=== PATIENT | female | born 1955 | race Caucasian/White ===

== ENCOUNTER → 2022-08-10 15:14 | Outpatient (BNVA) | payer MEDICARE, SELFPAY | PROVIDERS: PCP Nurse Practitioner Family; Visit Provider Nurse Practitioner Family | DX: R76.8 Other specified abnormal immunological findings in serum (principal) | CPT/HCPCS: 99202 ==

== ENCOUNTER 2023-06-20 10:15 | Outpatient (REF) | payer MEDICARE, SELFPAY ==
--- NOTE | ~2023-06-20 | XR_ITS ---
EXAMINATION: XR ABDOMEN KUB CLINICAL INDICATION: Constipation, abdominal pain. COMPARISON: None available. TECHNIQUE: 2 AP views of the abdomen. FINDINGS: Large amount of stool in the colon. Prominent air-filled loops of bowel centrally in the left upper quadrant. Degenerative changes in the imaged spine and bilateral hips. Rounded devices overlying the bilateral lower lungs may possibly be external to the patient such as nipple jewelry and correlation with clinical exam recommended for confirmation. XR/XR KUB IMPRESSION: 1. Large amount of stool in the colon. Prominent air-filled loops of bowel centrally in the left upper quadrant. Appearance is compatible with given history of constipation. 2. Rounded devices overlying the bilateral lower lungs may possibly be external to the patient such as nipple jewelry and correlation with clinical exam recommended for confirmation.
[2023-06-20 11:57] LABS: MANUAL DIFF FLAG NO
[2023-06-20 12:31] LABS: Basophils Percent Auto 0.5 % (0-2); Eosinophils Absolute Auto 0.1 X10*3/uL (0.0-0.4); Eosinophils Percent Auto 1.4 % (0-4); Hemoglobin 12.8 g/dl (12.0-16.0); Imm Gran Abs Auto 0.02 X10*3/uL (0.00-0.03); Imm Gran Pct Auto 0.3 % (0.0-0.4); Lymphocytes Absolute Auto 1.8 X10*3/uL (1.2-4.9); Mean Corpuscular HGB Conc 32.8 g/dl (31.0-35.0); Mean Corpuscular Hemoglobin 29.9 pg (27.0-33.0); Mean Corpuscular Volume 91.1 fL (80.0-98.0); Mean Platelet Volume 10.7 fL (9.4-12.3); Monocytes Absolute Auto 0.5 X10*3/uL (0.1-1.2); Monocytes Percent Auto 9.1 % (2-11); Neutrophils Absolute Auto 3.4 x10*3/uL (2.0-8.3); Neutrophils Percent Auto 57.7 % (45-73); Platelet Count 305 X10*3/uL (160-400); Red Blood Count 4.28 X10*6/uL (4.20-5.50); Red Cell Distribution Width 12.1 % (11.0-16.0); White Blood Count 5.9 X10*3/uL (4.8-10.8)
[2023-06-20 13:06] LABS: Alanine Aminotransferase 14 U/L (0-31); Albumin Level 4.5 g/dL (3.5-5.0); Alkaline Phosphatase 66 U/L (39-117); Anion Gap 12 (12-20); Aspartate Amino Transferase 15 U/L (5-31); Bilirubin Total 0.9 mg/dL (0.0-1.0); Blood Urea Nitrogen 12 mg/dL (9-16); Calcium 9.7 mg/dL (8.4-10.2); Carbon Dioxide 28 mmol/L (22-29); Chloride 101 mmol/L (96-108); Estimated Glomerular Filt Rate > 60; Glucose Random 98 mg/dL (60-115); Potassium 3.8 mmol/L (3.3-5.1); Sodium 137 mmol/L (135-145); Total Protein 6.9 g/dL (6.5-8.0)
[2023-06-20 13:20] LABS: Ferritin 73 ng/mL (10-250); Thyroid Stimulating Hormone 0.63 uIU/mL (0.32-4.0)
[2023-06-20 13:34] LABS: Folate 5.9 ng/mL (> or = 4.0); Vitamin B12 833 pg/mL (200-900)
[2023-06-21 07:55] LABS: HBS Num1 4.76 mIU/mL (0-7.99); HBc Num1 0.04 S/CO (0.00-0.79); HBsAGNum1 0.38 S/CO (0.00-0.99); Hepatitis A Antibody IgM 0.11 Index (0-0.79); Hepatitis B Core Antibody Nonreactive (Nonreactive); Hepatitis B Surface Antigen Negative (Negative); ~HepC Num1 0.04 S/CO (0.00-0.79); ~Hepatitis A Antibody IgM Nonreactive (Nonreactive); ~Hepatitis B Surface Antibody NONREACTIVE (Nonreactive); ~Hepatitis C Antibody Nonreactive (Nonreactive)
[2023-06-21 15:14] LABS: IgA 73 mg/dL (70-320); IgG 539 mg/dL (600-1540); IgM 42 mg/dL (50-300)
[2023-06-21 19:23] LABS: Gliadin Deamidated IgA Ab <1.0 U/mL; Gliadin Deamidated IgG Ab <1.0 U/mL
[2023-06-21 19:28] LABS: Transglutaminase IgA <1.0 U/mL
[2023-06-23 16:14] LABS: Mitochondrial Antibodies NEGATIVE (NEGATIVE)
[2023-06-23 16:48] LABS: Aldolase 6.2 U/L (<=8.1); Vitamin B1 11 nmol/L (8-30)
[2023-06-23 18:10] LABS: Zinc 54 mcg/dL (60-130)
[2023-06-23 20:43] LABS: Alpha-Tocopherol 12.8 mg/L (5.7-19.9); Beta-Gamma Tocopherol <1.0 mg/L (<=4.3)
[2023-06-23 21:49] LABS: Vitamin A 43 mcg/dL (38-98)
[2023-06-24 13:49] LABS: Vitamin B6 10.2 ng/mL (2.1-21.7); Vitamin D 25-OH, D2 <4 ng/mL; Vitamin D 25-OH, D3 28 ng/mL; Vitamin D 25-OH, Total 28 ng/mL (30-100)
[2023-06-24 15:24] LABS: Angiotensin Converting Enzyme 47 U/L (9-67)
[2023-06-25 17:04] LABS: Histamine Plasma <1.5 ng/mL (< OR = 1.8)
[2023-06-27 17:54] LABS: Vitamin C 1.5 mg/dL (0.3-2.7)
[2023-06-29 18:14] LABS: IgE Antibody (Anti-IgE IgG) <6 ng/mL (<168)
[2023-07-01 16:09] LABS: Hu Antibody Screen, IFA Serum NEGATIVE (NEGATIVE)
[2023-07-03 23:39] LABS: Vitamin B5 (Pantothenic Acid) <40 ng/mL (<275)
== END 2023-06-20 10:16 | disposition home or self-care (01) ==
LOC: HO.LAB 10:15
PROVIDERS: PCP Nurse Practitioner Family; Visit Provider Physician Assistant
DX: K90.9 Intestinal malabsorption, unspecified (principal); R14.0 Abdominal distension (gaseous); K83.9 Disease of biliary tract, unspecified; E46 Unspecified protein-calorie malnutrition; R29.818 Other symptoms and signs involving the nervous system; R26.89 Other abnormalities of gait and mobility; R10.9 Unspecified abdominal pain; K58.9 Irritable bowel syndrome, unspecified; L30.9 Dermatitis, unspecified; K52.9 Noninfective gastroenteritis and colitis, unspecified; D64.9 Anemia, unspecified; K58.1 Irritable bowel syndrome with constipation; K58.0 Irritable bowel syndrome with diarrhea; K59.09 Other constipation; Z79.899 Other long term (current) drug therapy
CPT/HCPCS: 36415; 74018; 80053; 82085; 82164; 82180; 82306; 82550; 82607; 82728; 82746; 82784; 83088; 83520; 84181; 84207; 84425; 84443; 84446; 84590; 84591; 84630; 85025; 86003; 86255; 86256; 86258; 86364; 86381; 86704; 86706; 86709; 86803; 87340; 99202

== ENCOUNTER 2023-06-20 10:15 | Outpatient (AMB) | payer MEDICARE, SELFPAY ==
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
[2023-06-20 10:33] VITALS: BP 129/60; PULSE 71; BMI 24.9
== END 2023-06-20 11:31 | disposition home or self-care (01) ==
PROVIDERS: PCP Nurse Practitioner Family; Visit Provider Physician Assistant
DX: K59.09 Other constipation (principal); K83.9 Disease of biliary tract, unspecified; E46 Unspecified protein-calorie malnutrition; R29.818 Other symptoms and signs involving the nervous system; R26.89 Other abnormalities of gait and mobility
CPT/HCPCS: 99204

== ENCOUNTER 2023-06-21 12:25 | Outpatient (REF) | payer MEDICARE, SELFPAY ==
[2023-06-28 04:13] LABS: Fecal Fat Qualitative ABNORMAL (NORMAL)
[2023-06-29 23:48] LABS: Lactoferrin, Fecal, Quant. <6.25 mcg/mL (<7.25)
== END 2023-06-21 12:26 | disposition home or self-care (01) ==
LOC: HO.LNP 12:25
PROVIDERS: Visit Provider Physician Assistant
DX: K90.9 Intestinal malabsorption, unspecified (principal); R29.818 Other symptoms and signs involving the nervous system
CPT/HCPCS: 82705; 83631

== ENCOUNTER 2023-07-15 11:05 | Outpatient (REF) | payer MEDICARE, SELFPAY ==
[2023-07-15 11:22] LABS: MANUAL DIFF FLAG NO
[2023-07-15 12:29] LABS: Basophils Percent Auto 0.8 % (0-2); Eosinophils Absolute Auto 0.2 X10*3/uL (0.0-0.4); Eosinophils Percent Auto 2.8 % (0-4); Hematocrit 37.1 % (37.0-47.0); Hemoglobin 12.2 g/dl (12.0-16.0); Imm Gran Abs Auto 0.01 X10*3/uL (0.00-0.03); Imm Gran Pct Auto 0.2 % (0.0-0.4); Lymphocytes Absolute Auto 1.7 X10*3/uL (1.2-4.9); Lymphocytes Percent Auto 31.3 % (20-40); Mean Corpuscular HGB Conc 32.9 g/dl (31.0-35.0); Mean Corpuscular Hemoglobin 29.8 pg (27.0-33.0); Mean Corpuscular Volume 90.5 fL (80.0-98.0); Mean Platelet Volume 10.6 fL (9.4-12.3); Monocytes Absolute Auto 0.4 X10*3/uL (0.1-1.2); Monocytes Percent Auto 7.9 % (2-11); Platelet Count 283 X10*3/uL (160-400); Red Cell Distribution Width 12.3 % (11.0-16.0); White Blood Count 5.3 X10*3/uL (4.8-10.8)
[2023-07-15 13:15] LABS: Erythrocyte Sedimentation Rate 7 MM/HR (0-20)
[2023-07-15 13:16] LABS: Alanine Aminotransferase 11 U/L (0-31); Alkaline Phosphatase 68 U/L (39-117); Anion Gap 11 (12-20); Aspartate Amino Transferase 13 U/L (5-31); Bilirubin Total 0.6 mg/dL (0.0-1.0); Blood Urea Nitrogen 14 mg/dL (9-16); C Reactive Protein 0.11 mg/dL (< or = 0.50); Calcium 9.1 mg/dL (8.4-10.2); Carbon Dioxide 28 mmol/L (22-29); Chloride 104 mmol/L (96-108); Estimated Glomerular Filt Rate > 60; Glucose Random 81 mg/dL (60-115); Potassium 3.9 mmol/L (3.3-5.1); Sodium 139 mmol/L (135-145); Total Protein 6.3 g/dL (6.5-8.0)
[2023-07-19 16:09] LABS: HLA B27 Positive (Negative)
== END 2023-07-15 11:06 | disposition home or self-care (01) ==
LOC: HO.LAB 11:05
PROVIDERS: Nurse Practitioner Family; Visit Provider Physician Assistant
DX: M79.18 Myalgia, other site (principal); R10.9 Unspecified abdominal pain
CPT/HCPCS: 36415; 80053; 85025; 85652; 86140; 86812

== ENCOUNTER 2023-07-27 07:44 | Outpatient (REF) | payer MEDICARE, SELFPAY ==
--- NOTE | ~2023-07-27 | CT_ITS ---
EXAMINATION: CT ENTEROGRAPHY ABDOMEN AND PELVIS WITH CONTRAST CLINICAL INFORMATION: Iron deficiency anemia COMPARISON: CT scan of abdomen and pelvis on 05/31/2020, MRI abdomen on 03/31/2021 at [facility] TECHNIQUE: Study performed with oral VoLumen (1350 mL) and 480 mL of water to distend the abdomen. The patient was injected with 85 mL Omnipaque 350 intravenous contrast which was administered without adverse effect. Coronal and sagittal reformatted images were obtained at the technologist's workstation. This CT examination was performed using dose optimization techniques as appropriate, variously including the following: *Automated exposure control *Adjustment of mA and/or kV according to patient size (this includes techniques or standardized protocols for targeted exams where dose is matched to indication/reason for exam; i.e. extremities or head) *Use of iterative reconstruction technique DLP: 335 mGy-cm FINDINGS: GASTROINTESTINAL FINDINGS: Stomach: Well-distended and normal in appearance. Small intestine: Satisfactorily distended and normal in appearance. Large intestine: Ascending colon is Well-distended and normal in appearance. Transverse, descending and sigmoid colon are filled with feces. No perirectal changes demonstrated. The appendix cannot be identified. Additional findings: No abnormal enhancement of the vasa recta or significant mesenteric or retroperitoneal lymphadenopathy is seen. No abdominal abscess or fistulous tract demonstrated. LUNG BASES: There is asymmetric elevation of left hemidiaphragm. LIVER: Persistent minute 0.5 cm hypodense lesion is seen at lateral capsular border of right hepatic lobe segment 8, impossible to characterize due to partial volume averaging, series 3 image #38. A persistent hypodense lesion with medial border marked peripheral enhancement is again visualized at medial border of right hepatic lobe segment 8 adjacent to the inferior vena cava, measuring 0.8 cm in diameter, series 3 image #46. The additional arterial phase hyperenhancing focal lesion at lateral posterior peripheral right hepatic lobe segment 8 visualized on MRI scanner could not be identified on CT images. GALLBLADDER AND BILIARY TREE: Gallbladder appears unremarkable without calcified stones. Common bile duct is not dilated. SPLEEN: The spleen is normal in size without focal lesion. PANCREAS: The pancreas appears unremarkable. ADRENAL GLANDS: Adrenal glands are normal in size without focal lesion bilaterally. KIDNEYS: Bilateral kidneys are normal in size without focal lesion. RETROPERITONEUM: No abnormally enlarged retroperitoneal lymph nodes, mass or hematoma could be seen. BLOOD VESSELS: Abdominal aorta is normal in size and smoothly patent. ABDOMINAL WALL: Abdominal subcutaneous tissue and muscle are intact. No evidence of ventral hernia. PERITONEUM: There was no ascites. There were no abdominal peritoneal inflammatory changes seen. No free peritoneal air was seen. No abnormally enlarged mesenteric lymph nodes are found. BONES: No fracture or dislocation. No focal bone lesion diagnostic of metastatic disease could be seen in the lumbar region. EXAMINATION: CT pelvis. FINDINGS: URINARY BLADDER: Urinary bladder fills normally with urine. GENITAL ORGANS: No adnexal mass lesion could be seen. The uterus is unremarkable. LYMPH NODES: No abnormally enlarged iliac or inguinal lymph nodes are seen. PERITONEUM: No inflammatory changes, ascites or free peritoneal air are found in the pelvis. BONES: No fracture or dislocation. No focal bone lesion diagnostic of metastatic disease could be seen in the pelvis. CT/CT enterography IMPRESSION: 1. Interval decrease in fecal distention of ascending colon and cecum. 2. No evidence of inflammatory bowel disease. 3. No evidence of bowel obstruction. 4. Unchanged lateral and medial border right hepatic lobe segment 8 hypodense lesions, found to be cavernous hemangiomas on previous MRI of abdomen. The third lesion at lateral posterior peripheral segment 8 could not be seen on the current examination. 5. Interval development of Asymmetric elevation of left hemidiaphragm.
[2023-07-27] MEDS: Sorbitol/Mannit/Xanth Imaging 500 ML LIQUID 1500 ML PO (09:40)
[2023-07-27] MEDS: iohexoL 350 MG/ML 100 ML INFUS..BTL IV (10:09)
== END 2023-07-27 07:45 | disposition home or self-care (01) ==
LOC: HO.CT 07:44
PROVIDERS: PCP Nurse Practitioner Family; Visit Provider Physician Assistant
DX: E61.1 Iron deficiency (principal)
CPT/HCPCS: 74177; Q9967

== ENCOUNTER 2023-08-12 09:21 | Outpatient (AMB) | payer MEDICARE, SELFPAY ==
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
[2023-08-12 09:35] VITALS: BP 140/67; PULSE 67; BMI 25.0
== END 2023-08-12 10:29 | disposition home or self-care (01) ==
PROVIDERS: PCP Physician Assistant; Visit Provider Internal Medicine Gastroenterology
DX: R19.5 Other fecal abnormalities (principal)
CPT/HCPCS: 99214

== ENCOUNTER → 2023-08-12 09:21 | Outpatient (BNVA) | payer MEDICARE, SELFPAY | PROVIDERS: PCP Nurse Practitioner Family; Visit Provider Internal Medicine Gastroenterology | DX: R19.5 Other fecal abnormalities (principal) | CPT/HCPCS: 99212 ==

== ENCOUNTER 2023-09-14 13:57 | Outpatient (REF) | payer MEDICARE, SELFPAY ==
--- NOTE | ~2023-09-14 | MR_ITS ---
EXAMINATION: MR BRAIN WITHOUT AND WITH CONTRAST CLINICAL INFORMATION: Tremor COMPARISON: None TECHNIQUE: Multiplanar multisequence MR imaging of the brain was obtained without and following the administration of 6 mL Gadavist intravenous contrast. FINDINGS: There is no acute infarct on diffusion-weighted imaging. There is no intracranial hemorrhage on iron-sensitive imaging. No extra-axial collection or mass effect/herniation. Normal parenchymal signal characteristics. No hydrocephalus. The ventricles are normal in morphology and size. No abnormal parenchymal or extra-axial enhancement. The major flow voids at the skull base are preserved. The midline structures are normal. 5 mm pineal cyst. The cerebellar tonsils are normally positioned. The craniocervical junction is normal. Marrow signal is within normal limits. The visualized soft tissues are without significant abnormality. Trace scattered paranasal sinus mucosal thickening. MR/MR head/brain wo/w con IMPRESSION: Unremarkable contrast enhanced MRI of the brain.
--- NOTE | ~2023-09-14 | MR_ITS ---
EXAMINATION: MR ABDOMEN WITHOUT AND WITH CONTRAST CLINICAL INFORMATION: Dilated duct. COMPARISON: CT enterography 07/27/2023 TECHNIQUE: MR abdomen was performed without and with use of 6 mL intravenous Gadavist gadolinium contrast. Postcontrast images are performed in multiphase dynamic sequences. Imaging was performed in 3 planes. MRCP was also performed. FINDINGS: LUNG BASES: No pleural or pericardial effusion. LIVER, GALLBLADDER, AND BILIARY TREE: The liver is normal in size, smooth in contour, and normal in signal. 6 mm medial and 8 mm lateral right hepatic hemangiomas. 7 mm hyperenhancing focus at the hepatic dome is not seen on precontrast sequences and may represent transient perfusion abnormality. No suspicious hepatic lesion or biliary ductal dilatation is present. The gallbladder is unremarkable with no evidence of gallbladder wall thickening, or obvious pericholecystic inflammatory changes. No intrahepatic biliary ductal dilatation. The common duct measures 5 mm at the benjamin hepatis. No intraductal filling defects. PANCREAS: No ductal dilatation. SPLEEN: Not enlarged. ADRENAL GLANDS: No adrenal mass. KIDNEYS AND URETERS: The kidneys are normal in size, shape, and enhance symmetrically. No hydronephrosis. No perinephric stranding. GASTROINTESTINAL TRACT: No bowel obstruction. No ascites or fluid collection. ABDOMINAL WALL: No significant hernia is appreciated. LYMPH NODES: No bulky lymphadenopathy. VASCULAR: Normal caliber abdominal aorta. MR/MR abdomen wo/w con IMPRESSION: No biliary ductal dilatation. Small hepatic hemangiomas
[2023-09-14] MEDS: gadobutroL 7.5 ML VIAL IVPUSH (15:39)
== END 2023-09-14 13:58 | disposition home or self-care (01) ==
LOC: HO.MRI 13:57
PROVIDERS: PCP Physician Assistant; Visit Provider Physician Assistant
DX: R25.1 Tremor, unspecified (principal); R26.89 Other abnormalities of gait and mobility; K83.9 Disease of biliary tract, unspecified
CPT/HCPCS: 70553; 74183; A9585

== ENCOUNTER → 2023-11-18 13:48 | Outpatient (BNVA) | payer MEDICARE, SELFPAY | PROVIDERS: PCP Physician Assistant; Visit Provider Student in an Organized Health Care Education/Training Program | DX: Z15.89 Genetic susceptibility to other disease (principal) | CPT/HCPCS: 99212 ==

== ENCOUNTER 2024-01-13 08:14 | Outpatient (AMB) | payer MEDICARE, SELFPAY ==
[2024-01-13 08:34] VITALS: BP 138/68; PULSE 67; BMI 24.5
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
== END 2024-01-13 09:34 | disposition home or self-care (01) ==
PROVIDERS: PCP Physician Assistant; Visit Provider Internal Medicine Gastroenterology
DX: R19.5 Other fecal abnormalities (principal)
CPT/HCPCS: 99213

== ENCOUNTER → 2024-01-13 08:14 | Outpatient (BNVA) | payer MEDICARE, SELFPAY | PROVIDERS: PCP Physician Assistant; Visit Provider Internal Medicine Gastroenterology | DX: R19.5 Other fecal abnormalities (principal) | CPT/HCPCS: 99212 ==

== ENCOUNTER 2024-02-28 07:41 | Day surgery (SDC) | payer MEDICARE, SELFPAY ==
[2024-02-28 08:28] VITALS: BMI 23.7
[2024-02-28] MEDS: Lactated Ringers 1,000 ML 100 ML IVCONT (08:56)
[2024-02-28 08:57] VITALS: BP 127/63; PULSE 67; RESP 14; TEMP 36.4; O2SAT 100
--- NOTE | 2024-02-28 10:00 | P.HPSUR_ITS ---
Pre-Procedural Eval Section A - 24 Hr Update-Section A only Date of Service: 02/28/24 Section B - Complete if H&P > 30 days Chief Complaint: Unspecified abdominal pain Relevant Family History (Specify if Yes): No Relevant Social History: None Present Medications: see Short Stay Collaborative assessment Medical History: Significant History (Neurologic abnormality Benign paroxysmal positional vertigo Osteoporosis Asthma Minimal cognitive impairment PTSD (post- traumatic stress disorder) Thyrotoxicosis Toxic multinodular goiter Lyme carditis) History of Previous Operations: Relevant previous surgery/procedure and date(s) ( History of ) Allergies: Allergies Allergy/AdvReac Type Severity Reaction Status Date / Time amoxicillin AdvReac Unknown Rash Verified 02/28/24 08:18 ceftriaxone AdvReac Unknown Low white Verified 02/28/24 08:18 blood count sulfamethoxazole AdvReac Unknown Rash Verified 02/28/24 08:18 [From Bactrim] trimethoprim [From Bactrim] AdvReac Unknown Rash Verified 02/28/24 08:18 Review of Systems Sugical H&P ROS: Negative: Constitution, Cardiovascular, Respiratory, Neurological, Psychiatric, Hem-Onc, Allergic/Immunologic, Gastrointestinal, Genitourinary, Musculoskeletal, Integumentary, Endocrine and Eyes/Ear s/Nose/Throat Exam Surgical H&P Exam: Normal: HEENT, Normal: Heart, Normal: Lungs, Normal: Extremities, Normal: Abdomen, Normal: Skin and Normal: Neurological Plan Diagnosis/Plan: Unchanged I have reviewed the history and physical and performed a pertinent physical examination on my patient. No changes have occurred unless specified. Time Spent With Patient Time: Total time managing care of this patient today ____ minutes.
--- NOTE | 2024-02-28 10:27 | W.PM.OPN ---
Operative Note Operative Note Date of Service: 02/28/24 Narrative: Procedure Description: EGD Indication: pos fecal fat Anesthesia: MAC FLEXIBLE TRANSORAL UPPER GASTROINTESTINAL ENDOSCOPY UPPER ENDOSCOPY Consent: Indications for the procedure and potential complications of bleeding, perforation, reaction to medications and missed diagnosis were discussed with the patient and informed consent was obtained. Instrument: Olympus GIF H 190 J mid size upper endoscope Monitoring: Vital signs and clinical assessment, continuous EKG monitoring, Pulse oximetry, Carbon Dioxide monitoring and blood pressure monitoring were done throughout the procedure. Procedure: The patient was placed in the left lateral decubitis position and pre-procedure medications were administered and a bite block was placed. The endoscope was inserted into the mouth and advanced under direct vision to the third part of duodenum. A careful inspection was made as the upper endoscope was withdrawn including a retroflexed examination of the proximal stomach; Findings and interventions are described below. Findings: Larynx:normal Esophagus: GE junction at 35 cm, diaphragm hiatus at 38 cm, consistent with 3 cm sliding hiatal hernia, schatzki ring noted. GEJ junction tissue was inflammaed and friable, boggy consistent with reflux Stomach: mild erythema . Biopsies were obtained. Grade 2 flap valve on retroflexed examination of the cardia. Duodenum: Normal bulb and descending duodenum, bx taken Intervention: Biopsies as noted above, Impression/Findings: hiatal hernia esophagitis schatzki ring PLAN: await bx results GERD precautions
[2024-02-28 10:32] VITALS: BP 91/50; PULSE 71; RESP 15; TEMP 36.2; O2SAT 98
[2024-02-28 10:37] VITALS: BP 94/50
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
[2024-02-28 10:45] VITALS: BP 89/50
[2024-02-28 10:47] VITALS: BP 107/64; PULSE 67; RESP 15; TEMP 36.6; O2SAT 100
== END 2024-02-28 11:24 | disposition home or self-care (01) ==
PROVIDERS: PCP Physician Assistant; Visit Provider Internal Medicine Gastroenterology
PROC: 0DJ08ZZ Inspection of Upper Intestinal Tract, Via Natural or Artificial Opening Endoscopic (ICD-10-PCS; CPT 43235; principal; 2024-02-28 10:00)
DX: K20.90 Esophagitis, unspecified without bleeding (principal); K22.2 Esophageal obstruction; K22.89 Other specified disease of esophagus; K44.9 Diaphragmatic hernia without obstruction or gangrene; R19.5 Other fecal abnormalities; J45.909 Unspecified asthma, uncomplicated; Z79.899 Other long term (current) drug therapy
CPT/HCPCS: 43239; 88305; 88313; 88342; J2003; J2704

== ENCOUNTER → 2024-02-28 07:41 | Outpatient (BNV) | payer MEDICARE, SELFPAY | PROVIDERS: PCP Physician Assistant; Visit Provider Internal Medicine Gastroenterology | DX: K22.2 Esophageal obstruction (principal); K20.90 Esophagitis, unspecified without bleeding; R19.5 Other fecal abnormalities | CPT/HCPCS: 43239 ==

== ENCOUNTER 2024-03-30 09:41 | Outpatient (AMB) | payer MEDICARE, SELFPAY ==
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
== END 2024-03-30 11:23 | disposition home or self-care (01) ==
LOC: HO.HGI 09:41
PROVIDERS: PCP Physician Assistant; Visit Provider Internal Medicine Gastroenterology
DX: K21.9 Gastro-esophageal reflux disease without esophagitis (principal)
CPT/HCPCS: 99441

== ENCOUNTER 2024-10-01 12:34 | Outpatient (AMB) | payer MEDICARE, MEDICAID, SELFPAY ==
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
[2024-10-01 12:51] VITALS: BP 140/72; PULSE 58; O2SAT 100; BMI 26.8
--- OUTSIDE RECORDS SUMMARY | 2024-10-01 13:57 | XMS_ITS | Data Portability ---
Author Organization [facility], [address] Address [address] [place] [address] Assessment No assessment recorded. Plan of Treatment Reminders Order Date Submit Date Provider Last Modified By Organization Details Last Modified Time Details Appointments None recorded. Lab urinalysis , dipstick 2023 024 [email or web address], [address] [place], [address], 14:40:20 Referral None recorded. Procedures None recorded. Surgeries None recorded. Imaging None recorded. Medication Orders estradiol 10 mcg vaginal tablet 2023 024 [id number], [address] [place], [address], 4 14:40:20 Patient TargetsNo targets recorded. Patient InstructionsNo instructions recorded. Reason for Referral None Reported. Results Created Date Observation Date Name Description Value Unit Range Abnormal Flag Note LastModifiedBy Organization Detail LastModifiedTime 05/10/1905/10/2023 urina lysis , dipst ick Unknown Analyte Yellow Not Available _ [address] [place], [address], 05/10/2023 14:22:54 05/10/19 24 05/10/2023 urina lysis , dipst ick Unknown Analyte Cloudy Not Available _ [address] [place], [address], 05/10/2023 14:22:54 05/10/19 24 05/10/2023 urina lysis , dipst ick Unknown Analyte Negati ve Not Available lisa brooke [address] [place], [address], 05/10/2023 14:22:54 05/10/19 24 05/10/2023 urina lysis , dipst ick Unknown Analyte Negati ve Not Available lisa brooke [address] [place], [address], 05/10/2023 14:22:54 05/10/19 24 05/10/2023 urina lysis , dipst ick Unknown Analyte Negati ve Not Available lisa brooke [address] [place], [address], 05/10/2023 14:22:54 05/10/19 24 05/10/2023 urina lysis , dipst ick Unknown Analyte 1.015 Not Available _ marya [address] [place], [address], 05/10/2023 14:22:54 05/10/19 24 05/10/2023 urina lysis , dipst ick Unknown Analyte Trace- intact Not Available lisa brooke [address] [place], [address], 05/10/2023 14:22:54 05/10/19 24 05/10/2023 urina lysis , dipst ick Unknown Analyte 7.5 Not Available marya [address] [place], [address], 05/10/2023 14:22:54 05/10/19 24 05/10/2023 urina lysis , dipst ick Unknown Analyte Negati ve Not Available lisa brooke [address] [place], [address], 05/10/2023 14:22:54 05/10/19 24 05/10/2023 urina lysis , dipst ick Unknown Analyte 0.2 E.U./d L Not Available lisa brooke [address], [address], 05/10/2023 14:22:54 05/10/19 24 05/10/2023 urina lysis , dipst ick Unknown Analyte Negati ve Not Available lisa brooke [address], [address], 05/10/2023 14:22:54 05/10/19 24 05/10/2023 urina lysis , dipst ick Unknown Analyte Negati ve Not Available lisa brooke [address], [address], 05/10/2023 14:22:54 Result Notes None recorded. Problems Name Problem SNOMED Code Status Onset Date Resolution Date Notes Provider Name and Address Organization Details Recorded Time Asthma 772244243 Active Celia Yudi null, [place] - [facility] 4 14:22:07 Thyroiditis 00694642 Active Celia Yudi null, [place] - [facility] 4 14:22:14 Problem Notes None recorded. Medical Equipment None Reported. Allergies Allergen ID Allergen Name Allergen Category Reaction Reaction Severity Criticality Documentation Date Start Date Code Code System Note Provider Name and Address Organization Details Recorded Time 751155 amoxicill in medicatio n Not available Not available Not available 05/10/2023 723 RxNorm Celia Yudi null, PA - [facility] 4 14:21:15 487632 Bactrim medicatio n Not available Not available Not available 05/10/2023 54090 9 RxNorm Celia Yudi null, [place] - [facility] 4 14:21:25 Medications Name Sig Start Date Stop Date Status Note LastModified by Organization Details LastModified Time methimazole 5 mg tablet Take 1 tablet every day by oral route. active Not Available Not Available No t Available albuterol sulfate active Not Available Not Available Not Available estradiol 10 mcg vaginal tablet Insert 1 tablet every day by vaginal route for 14 days. 024 active Not Available Not Available Not Avai lable Vitals Date Recorded Body height Body mass index (BMI) Body weight Oxygen saturation Oxygen saturation in Arterial blood by Pulse oximetry Heart rate Respiratory rate Body temperature Systolic blood pressure Diastolic blood pressure Provider Name and Address Organization Details Last Updated DateTime 160.02 cm 26.6 kg/m2 31144.8 6 g 99 % 99 % 76 /min 18 /min 97.6 [degF] 125 mm[Hg] 83 mm[Hg] Celia Bagley [employer] 14:21:00 Social History Question Answer Notes LastModified by [facility] Details LastModified Time Tobacco Smoking Status Never Smoker Celia Bagley latosha PA [facility] 05/10/2023 14:22:36 Have You Had A Flu Shot This Season? Yes Information not available 05/10/2023 What Is Your Relationship Status? Information not available 05/10/2023 Are You Currently In School? No Information not available 05/10/2023 Sex: Unknown Functional Status Question Answer Note LastModified by [facility] Details LastModified Time Do you use any illicit or recreational drugs? No Information not available 05/10/2023 Do you or have you ever used any other forms of tobacco or nicotine? No Information not available 05/10/2023 What is your level of alcohol consumption? None Information not available 05/10/2023 Are you currently employed? No Information not available 05/10/2023 Mental Status None recorded. Family History Relationship Description Onset Age of this Age Resolved Age Notes LastModified by Organization Details LastModified Time Father No current problems or disability Not available 05/10 14:22:26 Mother No current problems or disability Not available 05/10 14:22:26 Medical History No medical history recorded. Gynecological HistoryNo gynecological history recorded. Obstetrics History GPAL:G 0 P 0 0 0 0 Past Encounters Encounter ID Performer Location Encounter Start Date Encounter Closed Date Diagnosis/Indication Diagnosis SNOMED-CT Code Diagnosis ICD10 Code Diagnosis Note [id number] MARINA Due[address]as [address] [facility] [place] [address] 05/10/2023 14:07:28 05/10/2023 14:41:49 Dysuria 19164144 R30.0 Vaginal dryness 68561592 N89.8 You were seen today for an ache in the vagina. Your urine test was negative today, and after discussion you decided to forego a pelvic exam. Since you have used vaginal estrogen in the past, it is reasonable to try this approach to help your symptoms. If you start having worsening pain, vaginal discharge, bleeding, or the pain starts spreading, I would recommend follow up with your gynecologi st, or if symptoms are severe, go to the ED Thank you for using [facility] today, please feel free to contact our office if you have any questions or concerns. Health Concerns Section Related Observation LastModified by Organization Detai ls LastModified Time None Recorded Concern Status LastModified by Organization Details LastModified Time None Recorded Advance Directives Directive None Recorded Payers Insurance Date Sequence Insurance Name Policy Number Policy Moreno Covered Member ID Moreno Member ID Guarantor Name 05/10/2023 2 [facility] [id number] Elie Kennedy [id number] Elie Kennedy 05/10/2023 1 MEDICARE [place]: [facility] [employer] Ailyn Kennedy [id number] Elie Kennedy Notes Date Note Type Note Provider Name and Address Organization Details Recorded Time 05/10/2023 text/html 67 y/o female here with what she describes as a vaginal ache. No discharge or true pain.She has had some vaginal dryness in the past, for which she was prescribed Vagifem estradiol suppositories. MARINA Dueñas [address] [place], [address], [place] - [facility] 05/10/2023 14:43:36 OBGyn Episode No OBEpisode recorded.
== END 2024-10-01 13:17 | disposition home or self-care (01) ==
LOC: HO.HGI 12:35
PROVIDERS: PCP Physician Assistant; Visit Provider Internal Medicine Gastroenterology
DX: K21.9 Gastro-esophageal reflux disease without esophagitis (principal)
CPT/HCPCS: 99213

== ENCOUNTER → 2024-10-01 12:34 | Outpatient (BNVA) | payer MEDICARE, SELFPAY | PROVIDERS: PCP Physician Assistant; Visit Provider Internal Medicine Gastroenterology | DX: K21.9 Gastro-esophageal reflux disease without esophagitis (principal) | CPT/HCPCS: 99212 ==